=== PATIENT | female | born 2005 | race Caucasian/White ===

== ENCOUNTER 2024-08-25 11:45 | Emergency (ER) | payer OTHER ==
[2024-08-25] MEDS: Ketorolac 60 MG/2 ML SDV IM ONE (13:01)
[2024-08-25] MEDS: Orphenadrine 60 MG/2 ML Inj IM ONE (13:01)
== END 2024-08-25 14:27 | disposition home or self-care (01) ==
LOC: MW.ED 11:45
DX: S16.1XXA Strain of muscle, fascia and tendon at neck level, initial encounter (principal); Z88.1 Allergy status to other antibiotic agents; Z90.49 Acquired absence of other specified parts of digestive tract; V49.59XA Passenger injured in collision with other motor vehicles in traffic accident, initial encounter
CPT/HCPCS: 72040; 72070; 72100; 96372; 99284; J1885; J2360; 99283